=== PATIENT | male | born 1990 | race Caucasian/White ===

== ENCOUNTER 2018-10-29 13:11 | Emergency (ER) | payer OTHER ==
[~2018-10-29] VITALS: Ht 170.2 cm; Wt 51.7 kg
[2018-10-29 14:47] VITALS: Ht 170.2 cm; Wt 51.7 kg
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
[2018-10-29] MEDS ORDERED: OXYC30TA PO (20:22)
[2018-10-29] MEDS ORDERED: ALPR2TAB PO (20:23)
[2018-10-29] MEDS ORDERED: CARI350T29 PO (20:23)
[2018-10-29] MEDS ORDERED: CYCL5TAB PO (20:24)
[2018-10-29] MEDS ORDERED: AMPH30TA9 PO (20:24)
[2018-10-29] MEDS ORDERED: EMTR1TAB16 PO (20:26)
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
[2018-10-29 22:10] VITALS: BP 138/80; PULSE 90; RESP 18
== END 2018-10-29 20:10 | disposition home or self-care (01) ==
LOC: E/R 13:11
DX: T74.21XA Adult sexual abuse, confirmed, initial encounter (principal); F41.9 Anxiety disorder, unspecified; F90.9 Attention-deficit hyperactivity disorder, unspecified type
CPT/HCPCS: 36415; 80053; 80307; 81003; 85025; Z7502; 99283

== ENCOUNTER 2018-10-30 03:05 | Emergency (ER) | payer SELFPAY ==
[~2018-10-30] VITALS: Ht 170.2 cm; Wt 51.8 kg
[~2018-10-30 03:05] MED LIST: ALPR2TAB PO; AMPH30TA9 PO; CARI350T29 PO; CYCL5TAB PO; EMTR1TAB16 PO; OXYC30TA PO
[2018-10-30 03:09] VITALS: BP 143/88; PULSE 117; RESP 18; Ht 170.2 cm; Wt 51.8 kg
== END 2018-10-30 03:12 | disposition left against medical advice (07) ==
LOC: E/R 03:05
DX: Z53.21 Procedure and treatment not carried out due to patient leaving prior to being seen by health care provider (principal)

== ENCOUNTER 2019-01-29 00:29 | Emergency (ER) | payer OTHER ==
[~2019-01-29] VITALS: Ht 170.2 cm; Wt 54.6 kg
[2019-01-29 00:31] VITALS: Ht 170.2 cm; Wt 54.6 kg
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
--- NOTE | 2019-01-29 04:01 | ERD ---
ER Documentation Chief Complaint Chief Complaint "I WANT ANSWERS";STATES WITHDRAWING FROM PAIN MEDS HPI Is a 28-year-old male says he wants pain medication as he feels he is withdrawing previously he is pain medication 2 weeks ago. Is been going hospital hospital requesting pain meds. Denies suicidal homicidal ideation. ROS All systems reviewed and are negative except as per history of present illness. Medications Home Meds Reported Medications Emtricitabine/Tenofov Alafenam (Descovy 200-25 mg Tablet) 1 Each Tablet, 1 EACH PO DAILY, TAB 10/29/18 Cyclobenzaprine Hcl* (Cyclobenzaprine Hcl*) 5 Mg Tablet, 5 MG PO TID, #90 TAB 10/29/18 Amphet Ghv-Irnzty-I-Amphet (Amphetamine Salts) 30 Mg Tablet, 30 MG PO TID, TAB 10/29/18 Alprazolam* (Xanax*) 2 Mg Tablet, 2 MG PO TID, TAB 10/29/18 Carisoprodol* (Carisoprodol*) 350 Mg Tablet, 350 MG PO QHS PRN for MUSCLE SPASMS, TAB 10/29/18 Oxycodone Hcl* (IR) (Oxycodone Hcl*) 30 Mg Tablet, 30 MG PO TID PRN for PAIN, TAB 10/29/18 Allergies Allergies: Coded Allergies: No Known Allergy (Unverified , 07/26/18) PMhx/Soc Medical and Surgical Hx: pt denies Surgical Hx History of Surgery: No Anesthesia Reaction: No Hx Neurological Disorder: No Hx Respiratory Disorders: No Hx Cardiac Disorders: No Hx Psychiatric Problems: Yes (BIPOLAR , ANXIETY ) Hx Miscellaneous Medical Probl: Yes (LEARNING DISABILITY ) Hx Alcohol Use: No Hx Substance Use: Yes (meth,marijuana) Hx Tobacco Use: Yes Smoking Status: Current every day smoker Physical Exam Vitals Vital Signs Date Temp Pulse Resp B/P (MAP) Pulse Ox O2 O2 Flow FiO2 Time Delivery Rate 01/29/19 98.1 109 19 154/96 100 00:31 (115) Physical Exam Const: No acute distress Head: Atraumatic Eyes: Normal Conjunctiva ENT: Normal External Ears, Nose and Mouth. Neck: Full range of motion. No meningismus. Resp: Clear to auscultation bilaterally Cardio: Regular rate and rhythm, no murmurs Abd: Soft, non tender, non distended. Normal bowel sounds Skin: No petechiae or rashes Back: No midline or flank tenderness Ext: No cyanosis, or edema Neur: Awake and alert Psych: Normal Mood and Affect Procedures/MDM Medical decision making: This is a patient who comes in essentially for drug- seeking behavior. Is been cleared by psychiatry. At this point is clinically stable for outpatient management. Is been given resources for outpatient treatment Departure Diagnosis: Primary Impression: Psychological disorder Condition: Stable Patient Instructions: Treating Drug Abuse and Addiction MERCEDES DUTTA Jan 29, 2019 04:01
[2019-01-29 04:25] VITALS: BP 127/87; PULSE 102; RESP 20
== END 2019-01-29 04:44 | disposition home or self-care (01) ==
LOC: E/R 00:29
DX: F99 Mental disorder, not otherwise specified (principal); F17.210 Nicotine dependence, cigarettes, uncomplicated
CPT/HCPCS: 36415; 80053; 80307; 81003; 85025; Z7502; 99283